=== PATIENT | female | born 1950 | race Hispanic/Latino ===

== ENCOUNTER 2016-12-18 10:49 | Outpatient (CLI) | payer MEDICARE ==
--- NOTE | 2016-12-18 13:11 | Mammography Report ---
Right mammogram: Patient with history of right breast biopsy demonstrating cancer. This evaluation is for location of clip. Standard imaging demonstrates a biopsy clip in the upper-outer right breast. There is no associated mass or calcifications after clip. Outside images demonstrated area of slight architectural distortion in the upper-outer breast which on the current study appears to lie 2 cm lateral and 1.4 cm above the clip. There are no outside post biopsy images available. The findings are not otherwise remarkable. Impression: It would appear that there is a discordance between location of biopsy clip and the targeted lesion. Dr. Reyes is aware of this.
== END 2016-12-18 10:50 | disposition home or self-care (01) ==
LOC: SPVWC 10:49
PROVIDERS: ATTEND Surgery
DX: R92.8 Other abnormal and inconclusive findings on diagnostic imaging of breast (principal)
CPT/HCPCS: G0206-RT

== ENCOUNTER 2016-12-26 06:16 | Day surgery (SDC) | payer MEDICARE ==
--- NOTE | 2016-12-26 07:28 | Anesthesia Consultation ---
Anesthesia Consult and Med Hx Date of service: 12/26/16 - Airway Anesthetic Teeth Evaluation: Good, Caps (multiple caps in the back) ROM Head & Neck: Adequate Mental/Hyoid Distance: Adequate Mallampati Class: Class III Intubation Access Assessment: Possibly Difficult - Pre-Operative Health Status ASA Pre-Surgery Classification: ASA2 Proposed Anesthetic Plan: General - Pulmonary Hx Sleep Apnea: No (Snoring) - Cardiovascular System Hx Hypertension: Yes - Central Nervous System Hx Back Pain: Yes Hx Psychiatric Problems: No - Gastrointestinal Hx Gastroesophageal Reflux Disease: Yes - Hematic Hx Anemia: No Hx Sickle Cell Disease: No - Other Systems Hx Cancer: Yes (right breast CA)
--- NOTE | 2016-12-26 07:29 | Anesthesia Day of Surgery ---
Anesthesia Day of Surgery - Day of Surgery Patient Examined: Yes Patient H&P Reviewed: Yes Patient is NPO: Yes Beta Blockers: Yes
[2016-12-26] MEDS ORDERED: VERSED IV NR (08:00)
[2016-12-26] MEDS ORDERED: LACTATED RINGERS 1,000 ML IV SCH (08:00)
[2016-12-26] MEDS ORDERED: XYLOCAINE 1% 20 mL ONE (08:13)
[2016-12-26] MEDS ORDERED: VANCOMYCIN/NS 1 GM/250 ML 1 GM/250 ML BAG IV NR (08:30)
[2016-12-26] MEDS ORDERED: DIPRIVAN 10 MG/ML IV ONE (09:25)
[2016-12-26] MEDS ORDERED: DILAUDID ONE ×2 (09:26→10:55)
[2016-12-26] MEDS ORDERED: MARCAINE-EPI/PF 0.5%-1:200,000 INFILTRATI ONE (09:28)
[2016-12-26] MEDS ORDERED: DECADRON ONE ×2 (09:28→10:46)
--- NOTE | 2016-12-26 09:56 | Mammography Report ---
Right breast needle localization procedure. History: Biopsy proven right breast cancer. Review of the patient's previous studies demonstrate that the biopsy clip is discordant in position by approximately 2 cm. After reviewing the images with Dr. Reyes, it was decided to place 2 wires in order to bracket the clip and the actual parenchymal density. Procedure: The patient's skin surface was prepped and draped using sterile technique. Local anesthetic was injected into the skin. Using mammographic guidance, 2 7.5 cm Varela needles were placed into the area of interest at the posterior margin of the biopsy clip and at the anterior margin of the parenchymal density/distortion. Adequate localization was accomplished and a coarse left in place. The patient tolerated the procedure well clinically and was sent to the OR in satisfactory condition.
[2016-12-26] MEDS ORDERED: WATER FOR IRRIG STERILE IR ONE (10:46)
[2016-12-26] MEDS ORDERED: XYLOCAINE MPF 2% ONE (10:46)
[2016-12-26] MEDS ORDERED: ePHEDrine SULFATE ONE (11:32)
[2016-12-26] MEDS ORDERED: ROBINUL ONE (11:44)
[2016-12-26] MEDS ORDERED: LACTATED RINGERS 1,000 ML ONE (12:12)
--- NOTE | 2016-12-26 12:33 | Mammography Report ---
Specimen radiograph. Findings: A single specimen radiograph confirms the presence of the biopsy clip and both hook wires within the specimen.
[2016-12-26] MEDS ORDERED: ZOFRAN ONE (12:41)
--- NOTE | 2016-12-26 13:02 | Short Stay Summary ---
Short Stay Documentation Date of service: 12/26/16 - History H&P: obtained from office - Allergies and Medications Current Medications: Allergies Penicillins Allergy (Verified 12/20/16 13:23) Rash happen during childhood Sulfa (Sulfonamide Antibiotics) Allergy (Verified 12/20/16 13:23) Rash adhesive tape Adverse Reaction (Verified 12/20/16 13:23) Bleeding redness and ripped skin Home Medications Medication Instructions Recorded Confirmed Last Taken Type Loratadine 10 mg PO DAILY 12/20/16 12/26/16 12/26/16 05:00 History Metoprolol Tartrate 37.5 mg PO BID 12/20/16 12/26/16 12/26/16 05:00 History Ranitidine HCl 150 mg PO BID 12/20/16 12/26/16 12/26/16 05:00 History HYDROcodone/APAP 5-325 [[place] 1 each PO Q6HR PRN #30 tablet 12/26/16 Unknown Rx 5/325] Active Medications Lactated Ringer's (Lactated Ringers) 1,000 mls @ 100 mls/hr IV DIRECT JENNIFER Last Admin: 12/26/16 09:25 Dose: 100 mls/hr Vancomycin HCl (Vancomycin/Ns 1 Gm/250 Ml) 1 gm in 250 mls @ 167.007 mls/hr IV PREOP NR PRN Reason: Protocol Stop: 12/26/16 15:00 Last Admin: 12/26/16 09:45 Dose: 167.007 mls/hr Midazolam HCl (Versed) 2 mg IV PREOP NR Stop: 12/26/16 23:59 Last Admin: 12/26/16 09:28 Dose: 2 mg - Brief post op/procedure progress note Date of procedure: 12/26/16 Pre-op diagnosis: Right breast cancer of the upper outer quadrant Post-op diagnosis: same Procedure: Complex right needle localization partial mastectomy with SLNB Anesthesia: GETA Findings: Wires and clip present within radiograph specimen Surgeon: DI DESOUZA Estimated blood loss: minimal Pathology: list (right partial mastectomy and SLNB) Specimen disposition: to lab Condition: stable - Disposition Condition at discharge: Good Disposition: DC-01 TO HOME OR SELFCARE Short Stay Discharge Plan Activity: other (no heavy lifting) Diet: regular Wound: other (keep incision clean and dry; may shower in 24 hours; no baths, pools or lakes; do not rub or scrub incision) Follow up with: VIKTORIYA RESENDIZ MD [Primary Care Provider] - 7 Days DI DESOUZA MD [Staff Physician] - 7 Days Prescriptions: HYDROcodone/APAP 5-325 [[place] 5/325] 1 each PO Q6HR PRN #30 tablet PRN Reason: Pain
--- NOTE | 2016-12-26 13:14 | Operative Report ---
Operative Report Operative Report: Date of Service: December 26, 2016 Preoperative diagnosis: Right breast cancer of the upper outer quadrant Postoperative diagnosis: Same Procedure: Complex right needle localization partial mastectomy and SLNB Surgeon: Madelin Reyes MD Anesthesia: General Findings: Radiograph specimen with wires and clip present; 1 SLN Drains: None EBL: less than 50 cc Complications: None Disposition: PACU in good condition Indications for operative procedure: This is a 66-year-old lady with newly diagnosed stage I right breast cancer of the upper outer quadrant. Recommendations were for radiology to place wires to localize area of cancer given discordance of clip from biopsy performed at outside facility. Area of cancer not well seen on ultrasound. Recommendations were to proceed with a partial mastectomy with sentinel lymph node staging. Patient wished to proceed with the above procedure. Procedure in detail: The patient was taken to the operating room and was laid supine. Anesthesia placed a right pectoral muscle block prior to going to the operating room. Radiology placed 2 wires to localize area of concern. Gen. anesthesia was administered. The right breast and axilla were prepped and draped in the normal sterile operative fashion. The nipple was injected with radioisotope. Wires identified. Gamma probe was inserted into the axillar for identification of sentinel lymph node. A skin incision was made with 15 blade knife in the axilla through the skin. The subcutaneous tissues were opened. Axillary fascia was opened with the Bovie cautery. The gamma probe was inserted into the axilla and one SLN was identified. Additional counts were less than 10% of the highest count. Hemostasis was obtained. Axillary cavity was irrigated and suctioned. Axillary fascia was approximated and closed using interrupted 3-0 Vicryl and skin closed and brought together using a 4-0 Monocryl and skin affix. Attention was then taken towards the right breast. 2 wires were identified. A right lateral breast incision was made with a 15 blade knife and dissection taken down to the subcutaneous tissues. The wires were removed from the skin. First began with raising of the superior flap taken down posteriorly to pectoralis muscle followed by raising of the inferior flap taking down posteriorly to the pectoralis muscle, followed by raising of the medial flap taken down posteriorly to the perctoralis muscle and then raising of the lateral flap in the same fashion. The wires were not encountered. The specimen was then removed from the pectoralis muscle with the Bovie cautery and marked. Radiograph breast specimen with wires and clip present. Specimen sent to pathology. Hemostasis was obtained with the aid of the Bovie cautery. Breast cavity was irrigated and suctioned. Posteior breast tissues were appropriately approximated and closed using interrupted 3-0 Vicryl and the skin brought together and closed using a running 4-0 Monocryl and skin affix. She tolerated surgery very well and was awakened from anesthesia without any complications and transferred to PACU in good condition.
[2016-12-26] MEDS ORDERED: TRANSDERM-SCOP TD PRN (13:56)
[2016-12-26 17:48] VITALS: BP 125/70
--- NOTE | 2016-12-26 18:39 | Post Anesthesia Evaluation ---
- Post Anesthesia Evaluation Patient Participated: Yes Airway Patent: Yes Stable Respiratory Function: Yes Nausea/Vomiting: No Temp > 96.8F: Yes Pain Manageable: Yes Adequeate Hydration: Yes Anesthesia Complications: No Block Receding Appropriately: Not Applicable Patient on Ventilator: No
== END 2016-12-26 17:05 | disposition home or self-care (01) ==
LOC: OR 06:16
PROVIDERS: ATTEND Surgery
DX: C50.411 Malignant neoplasm of upper-outer quadrant of right female breast (principal); I10 Essential (primary) hypertension; K21.9 Gastro-esophageal reflux disease without esophagitis; Z88.0 Allergy status to penicillin; Z88.2 Allergy status to sulfonamides; Z91.09 Other allergy status, other than to drugs and biological substances; Z98.890 Other specified postprocedural states; Z79.899 Other long term (current) drug therapy; Z80.3 Family history of malignant neoplasm of breast; Z80.41 Family history of malignant neoplasm of ovary
CPT/HCPCS: 19281; 19282; 19301; 38525; 38792; 64450; 76098; 78800; 88307; 88333; 88342; A9541; J1100; J1170; J2250; J2405; J2704; J3370; J7120

== ENCOUNTER 2017-05-28 09:47 | Outpatient (CLI) | payer MEDICARE ==
--- NOTE | 2017-05-28 10:17 | Mammography Report ---
RIGHT DIGITAL DIAGNOSTIC MAMMOGRAM with CAD: 05/28/17 09:47:00 CLINICAL: Six month followup after partial mastectomy and radiation therapy. She completed radiation in March 2017. COMPARISON:12/18/16 FINDINGS: Postsurgical scar after excision of an upper-outer lesion with a biopsy clip.Mild skin thickening at the scar. No mass, suspicious architectural distortion or suspicious calcifications. IMPRESSION: No mammographic evidence of malignancy.Benign postsurgical and post radiation changes. BI-RADS CATEGORY: 2 - - Benign RECOMMENDATION: Routine mammographic screening. ACR BI-RADS MAMMOGRAPHIC CODES: 0 = Needs additional imaging evaluation; 1 = Negative; 2 = Benign; 3 = Probably benign; 4 = Suspicious; 5 = Malignant; 6 = Known biopsy-proven malignancy COMMENT: 1. Dense breast tissue, i.e., adenosis, fibrocystic changes, etc., may obscure an underlying neoplasm. 2. Approximately 10% of cancers are not detected with mammography. 3. A negative mammography report should not delay biopsy if a clinically suspicious mass is present. COMMENT: Patient follow-up letters are generated by our [employer] application.
== END 2017-05-28 09:48 | disposition home or self-care (01) ==
LOC: SPVWC 09:47
PROVIDERS: ATTEND Surgery
DX: R92.8 Other abnormal and inconclusive findings on diagnostic imaging of breast (principal); Z85.3 Personal history of malignant neoplasm of breast; Z90.11 Acquired absence of right breast and nipple

== ENCOUNTER → 2017-11-05 | Outpatient (CLI) | payer MEDICARE ==
--- NOTE | 2017-11-05 14:50 | Mammography Report ---
BILATERAL DIGITAL DIAGNOSTIC MAMMOGRAM WITH CAD : 11/05/17 14:11:00 CLINICAL: Breast cancer survivor status post right partial mastectomy in 2017 with subsequent radiation therapy. COMPARISON:05/28/17 FINDINGS: The left breast is mostly fatty and the right breast is smaller and heterogeneously dense. Benign right upper outer postsurgical scar. Moderate skin thickening of the right breast with an increase since the last mammogram. No mass, suspicious architectural distortion or suspicious calcifications. IMPRESSION: No mammographic evidence of malignancy. Benign postsurgical and post radiation changes in the right breast. BI-RADS CATEGORY: 2 -- Benign RECOMMENDATION: Routine mammographic screening in one year. COMMENT: Patient follow-up letters are generated via our [employer] application.
== END | disposition home or self-care (01) ==
LOC: SPVWC 14:11
PROVIDERS: ATTEND Surgery
DX: R92.8 Other abnormal and inconclusive findings on diagnostic imaging of breast (principal); I10 Essential (primary) hypertension; K21.9 Gastro-esophageal reflux disease without esophagitis; M19.90 Unspecified osteoarthritis, unspecified site; Z90.710 Acquired absence of both cervix and uterus; Z88.0 Allergy status to penicillin; Z88.2 Allergy status to sulfonamides; Z91.048 Other nonmedicinal substance allergy status
CPT/HCPCS: 77066

== ENCOUNTER 2017-12-10 12:21 | Outpatient (CLI) | payer MEDICARE ==
--- NOTE | 2017-12-10 14:53 | Ultrasound Report ---
RIGHT BREAST ULTRASOUND: 12/10/17 12:21:00 CLINICAL: History of stage I right breast cancer status post right partial mastectomy 12/26/16 with subsequent radiation therapy. Increased skin thickening over the last month. COMPARISON: 11/05/17 [facility] mammogram 11/20/17 breast MRI from [facility]. The MRI report describes 2 subcentimeter foci of non-Mass enhancement deep to the surgical scar. MRI guided needle localization with surgical excision was recommended. FINDINGS: Ultrasound of the right breast(including all four quadrants and the retroareolar area) was performed. A seroma deep to the surgical scar at 10 o'clock 6 cm from the nipple measures approximately 2.8 x 2.1 x 3.0 cm. The wall of the seroma is asymmetrically thickened and measures 8 mm maximum. No mass or suspicious shadowing. It should also be noted that there are no signs of fat necrosis on the recent mammogram other than a fat fluid level at the center of the surgical site. IMPRESSION: Asymmetric thickening of the postsurgical seroma at 10 o'clock 6 cm from the nipple is of uncertain significance and may or may not correlate with the MRI finding. Consider ultrasound-guided aspiration of the seroma and ultrasound guided vacuum assisted needle biopsy of the thickened seroma wall if the recommended MRI guided localization and surgical excision are not performed. BI-RADS 4--Suspicious
== END 2017-12-10 12:22 | disposition home or self-care (01) ==
LOC: SPVWC 12:21
PROVIDERS: ATTEND Surgery
DX: C50.411 Malignant neoplasm of upper-outer quadrant of right female breast (principal); I10 Essential (primary) hypertension; K21.9 Gastro-esophageal reflux disease without esophagitis; Z90.710 Acquired absence of both cervix and uterus; M19.90 Unspecified osteoarthritis, unspecified site

== ENCOUNTER 2018-09-09 08:54 | Outpatient (CLI) | payer MEDICARE ==
--- NOTE | 2018-09-09 09:53 | Mammography Report ---
BILATERAL DIGITAL DIAGNOSTIC MAMMOGRAM WITH CAD : 09/09/18 08:54:00 CLINICAL: Breast cancer survivor status post right partial mastectomy. She also had an MRI guided vacuum assisted needle biopsy at [facility] 12/18/17 with pathology of benign fat necrosis and foreign body type giant cell reaction. COMPARISON:03/04/18 and 11/05/17 FINDINGS: The breasts are heterogeneously dense, which may obscure small masses. Right upper outer benign postsurgical scar. A previously confirmed fluid collection at the scar has resolved. No mass, suspicious architectural distortion or suspicious calcifications. The left breast is negative. IMPRESSION: No mammographic evidence of malignancy. Benign right posttreatment changes. BI-RADS CATEGORY: 2 -- Benign RECOMMENDATION: Routine mammographic screening in one year. COMMENT: Patient follow-up letters are generated via our [employer] application.
== END 2018-09-09 08:55 | disposition home or self-care (01) ==
LOC: SPVWC 08:54
PROVIDERS: ATTEND Surgery
DX: C50.911 Malignant neoplasm of unspecified site of right female breast (principal); I10 Essential (primary) hypertension; K21.9 Gastro-esophageal reflux disease without esophagitis; Z90.710 Acquired absence of both cervix and uterus
CPT/HCPCS: 77066

== ENCOUNTER 2019-03-10 13:03 | Outpatient (CLI) | payer MEDICARE ==
--- NOTE | 2019-03-10 13:53 | Mammography Report ---
DIGITAL SCREENING MAMMOGRAM WITH CAD, 03/10/2019 INDICATION: Routine screening mammography. Breast cancer survivor status post right partial mastectom y in 2017 with subsequent radiation therapy. She also had an MRI guided needle biopsy of the right br east at [facility] 12/18/2017 with pathology of benign fat necrosis and foreign body type giant treva l reaction. TECHNIQUE: Digital bilateral 2D mammography was obtained in the craniocaudal and mediolateral obliq ue projections. This examination was interpreted with the benefit of Computer-Aided Detection analysi s. COMPARISON: 09/09/2018 FINDINGS: Breast Density: The breasts are heterogeneously dense, which may obscure small masses. There is no evidence of dominant mass, suspicious calcifications or suspicious architectural distorti on in either breast. Stable right upper outer benign postsurgical scar. Moderate skin thickening of t he right breast. IMPRESSION: No mammographic evidence of malignancy. Follow up recommendation: Routine yearly BI-RADS Category 2: Benign. A "normal" or negative report should not discourage follow up or biopsy of a clinically significant f inding. A written summary of these findings will be mailed to the patient. The patient will be entered into a mammography reporting system which will generate a reminder letter for the patient's next appointmen t at the appropriate interval. The [employer] recommends yearly mammograms starting at age 40 and continuing as l abigail as a woman is in good health. Breast MRI is recommended for women with an approximate 20-25% or greater lifetime risk of breast cancer, including women with a strong family history of breast or ova margarita cancer or who have been treated for Hodgkin's disease. Signer Name: Marcelo Magana MD Signed: 03/10/2019 1:49 PM Workstation Name: [id number]
== END 2019-03-10 13:04 | disposition home or self-care (01) ==
LOC: SPVWC 13:03
PROVIDERS: ATTEND Surgery
DX: Z12.31 Encounter for screening mammogram for malignant neoplasm of breast (principal)
CPT/HCPCS: 77067

== ENCOUNTER 2019-03-12 10:08 | Outpatient (CLI) | payer MEDICARE ==
--- NOTE | 2019-03-12 14:36 | Nuclear Medicine Report ---
NUCLEAR MEDICINE BONE SCAN, WHOLE BODY INDICATION: Breast cancer, bone pain. TECHNIQUE: 26.9 mCi of Tc-99m MDP were injected IV. Whole body images were obtained. COMPARISON: No relevant prior imaging study available. FINDINGS: Skeletal Structures: There is some focal activity noted in the left aspect of the lower cervical spin e. There is focal uptake noted in the left greater trochanter.. Mild, relatively symmetric, periartic ular activity which is likely degenerative. There is mild uptake in the shoulders knees and proximal feet likely degenerative in nature. Skeletal Lesions: None. Soft Tissues: Normal. Kidneys: Normal, symmetric activity. Additional Findings: None. IMPRESSION: 1. The uptake in the shoulders knees and feet is characteristic of degenerative change. The uptake in the left lower cervical spine is indeterminate but most likely degenerative as well. The uptake in t he greater trochanter of the left femur is not specific. If clinically warranted further evaluation w ith MRI of the cervical spine and left hip can be obtained to further evaluate.. Signer Name: Lakhwinder Alves MD Signed: 03/12/2019 2:32 PM Workstation Name: [id number]
== END 2019-03-12 10:09 | disposition home or self-care (01) ==
LOC: NM 10:08
PROVIDERS: ATTEND Internal Medicine Hematology & Oncology
DX: C50.411 Malignant neoplasm of upper-outer quadrant of right female breast (principal)
CPT/HCPCS: 78306; A9503

== ENCOUNTER 2019-05-04 13:11 | Outpatient (CLI) | payer MEDICARE ==
--- NOTE | 2019-05-04 16:40 | Magnetic Resonance Report ---
MRI CERVICAL SPINE 05/04/2019 INDICATION / CLINICAL INFORMATION: INCONCLUSIVE BONE SCAN/ BONE PAIN. History of breast cancer COMPARISON: Bone scan 03/12/2019 FINDINGS: GENERAL OBSERVATIONS: Unenhanced and enhanced MR images of the cervical spine were obtained. There is no evidence of acute abnormality. Vertebral body alignment and height is well preserved. There is no evidence of metastatic disease. Facet degenerative changes are present in the lower cervical spine, more pronounced on the left than on the right. This area of degenerative change corresponds to changes seen on the recent bone scan. There is no evidence of spinal cord compression or intrinsic spinal cord abnormality. [id number] ANALYSIS: C7-T1: Unremarkable. C6-7: Disc profile is preserved. Left-sided facet degenerative changes are present.. C5-6: Mild diffuse disc bulging and left greater than right facet degenerative changes. C4-5: Disc profile is well preserved. Bilateral facet degenerative changes are present. C3-4: Minimal symmetric diffuse disc bulging and small central disc protrusion. C2-3: Unremarkable. CRANIO-CERVICAL JUNCTION: Unremarkable. BONE MARROW: No significant abnormality. PARASPINAL SOFT TISSUES: No significant abnormality. IMPRESSION: 1. Facet degenerative changes, more pronounced on the left. 2. No evidence of metastatic disease. 3. No evidence of stenosis. Signer Name: Carlos Cali MD Signed: 05/04/2019 4:36 PM Workstation Name: [email or web address]
--- NOTE | 2019-05-04 18:08 | Magnetic Resonance Report ---
MRI LEFT HIP WITHOUT AND WITH CONTRAST INDICATION / CLINICAL INFORMATION: INCONCLUSIVE BONE SCAN/ BONE PAIN. Breast cancer. TECHNIQUE: Multiplanar, multisequence MR images were obtained. Pre and postcontrast sequences were obtained. 16 mL MultiHance injected IV. COMPARISON: Bone scan dated 03/12/19 FINDINGS: ACETABULAR LABRUM: Degenerative fraying but no tear. ARTICULAR CARTILAGE: Mild left hip chondrosis and degenerative arthrosis. JOINT SPACE AND CAPSULE: No significant joint effusion. GLUTEAL MUSCLES/TENDONS: Left gluteus medius and minimus tendinopathy with mild to moderate peritendi nitis. This peritendinitis may account for the mild uptake of radiotracer in the left greater trochan ter noted on bone scan. No underlying osseous lesion in the left greater trochanter. ILIOPSOAS MUSCLES/TENDON: No significant abnormality. PROXIMAL HAMSTRING TENDONS: No significant abnormality. GROIN MUSCLES/TENDONS: No significant abnormality. SOFT TISSUES: No significant abnormality. BONES: No significant bone marrow edema. No fracture. No osseous lesion. SACROILIAC JOINT(S): No significant abnormality. LOWER LUMBAR SPINE: No significant abnormality of visualized lower lumbar spine. SOFT TISSUE WITHIN PELVIS: No acute findings. ADDITIONAL FINDINGS: None. IMPRESSION: 1. Left gluteus medius and minimus tendinopathy and peritendinitis which likely accounts for the mild activity in the left greater trochanter on recent bone scan. 2. No focal osseous lesion in left greater trochanter or elsewhere in the visualized bony pelvis/left hip. Signer Name: Marleny Yeung MD Signed: 05/04/2019 6:03 PM Workstation Name: [id number]
== END 2019-05-04 13:12 | disposition home or self-care (01) ==
LOC: SPVIMAG 13:11
PROVIDERS: ATTEND Internal Medicine Hematology & Oncology
DX: M47.812 Spondylosis without myelopathy or radiculopathy, cervical region (principal); M16.12 Unilateral primary osteoarthritis, left hip; M76.02 Gluteal tendinitis, left hip; M50.21 Other cervical disc displacement, high cervical region; C50.411 Malignant neoplasm of upper-outer quadrant of right female breast
CPT/HCPCS: 72142; 73722; A9577

== ENCOUNTER 2019-10-01 08:40 | Outpatient (CLI) | payer MEDICARE ==
--- NOTE | 2019-10-01 11:39 | Mammography Report ---
RIGHT DIGITAL DIAGNOSTIC MAMMOGRAM WITH CAD -- 10/01/2019 RIGHT LIMITED BREAST ULTRASOUND INDICATION: Patient has history of right breast cancer status post lumpectomy in 2018. Patient presen ts for evaluation of focal pain and thickening along the lateral right breast. TECHNIQUE: Digital right mammographic imaging was performed. Limited ultrasound was performed. This examination was interpreted with the benefit of Computer-Aided Detection (CAD) analysis. COMPARISON: Prior mammograms 03/10/2019, 09/09/2018, and 11/05/2017, and right breast ultrasound 2017 FINDINGS: Breast Density: The breasts are heterogeneously dense, which may obscure small masses. MAMMOGRAPHIC FINDINGS: There is no evidence of dominant mass or suspicious calcifications in the righ t breast. There is stable postlumpectomy change and a stable biopsy clip seen in the upper outer quad rant of the right breast. There is a stable dystrophic calcification in the right axilla measuring up to 1.4 cm. There has been no significant change compared with the prior examinations. ULTRASOUND FINDINGS: Targeted ultrasound evaluation was performed of the area of interest. Targeted ultrasound of the area of focal pain and thickening in the 9:00 right breast reveals normal fibrogla ndular tissue. Redemonstration of the lumpectomy site in the right breast 10:00 position located 4 cm from the nipple, currently measuring up to 2.6 x 2.5 x 1.7 cm, previously 3.4 x 2.9 x 2.8 cm on prio r ultrasound from 02/2018. Ultrasound of the right axilla reveals a shadowing focus measuring up to 1 .2 cm, corresponding with the stable dystrophic calcification seen mammographically. IMPRESSION: 1. Stable postlumpectomy change in the right breast. No suspicious mammographic or sonographic abnorm ality to account for right focal pain and thickening, therefore clinical correlation is recommended. Follow up recommendation: Back to schedule. BI-RADS Category 2: Benign. A "normal" or negative report should not discourage follow up or biopsy of a clinically significant f inding. A written summary of these findings will be mailed to the patient. The patient will be entered into a mammography reporting system which will generate a reminder letter for the patient's next appointmen t at the appropriate interval. According to the [employer], yearly mammograms are recommended starting at age 40 and continuing as long as a woman is in good health. Breast MRI is recommended for women with an jd roximately 20-25% or greater lifetime risk of breast cancer, including women with a strong family his tory of breast or ovarian cancer and women who have been treated for Hodgkin's disease. Signer Name: Yamel Conner MD Signed: 10/01/2019 11:35 AM Workstation Name: [email or web address]
== END 2019-10-01 08:41 | disposition home or self-care (01) ==
LOC: SPVWC 08:40
PROVIDERS: ATTEND Surgery
DX: C50.411 Malignant neoplasm of upper-outer quadrant of right female breast (principal); Z98.890 Other specified postprocedural states

== ENCOUNTER 2020-03-15 11:13 | Outpatient (CLI) | payer MEDICARE ==
--- NOTE | 2020-03-16 13:16 | Mammography Report ---
DIGITAL SCREENING MAMMOGRAM WITH CAD, 03/15/2020 CLINICAL INFORMATION / INDICATION: Routine screening mammography. TECHNIQUE: Digital bilateral 2D mammography was obtained in the craniocaudal and mediolateral obliqu e projections. This examination was interpreted with the benefit of Computer-Aided Detection analysis . COMPARISON: 03/10/2019 FINDINGS: Breast Density: The breasts are heterogeneously dense, which may obscure small masses. No dominant mass, suspicious calcifications, or architectural distortion in either breast. Right surgical and biopsy changes are stable. IMPRESSION: No mammographic evidence of malignancy. Follow up recommendation: Routine yearly BI-RADS Category 2: Benign. A "normal" or negative report should not discourage follow up or biopsy of a clinically significant f inding. A written summary of these findings will be mailed to the patient. The patient will be entered into a mammography reporting system which will generate a reminder letter for the patient's next appointmen t at the appropriate interval. The [employer] recommends yearly mammograms starting at age 40 and continuing as l abigail as a woman is in good health. Breast MRI is recommended for women with an approximate 20-25% or greater lifetime risk of breast cancer, including women with a strong family history of breast or ova margarita cancer or who have been treated for Hodgkin's disease. Signer Name: Devon Walters MD Signed: 03/16/2020 1:12 PM Workstation Name: [id number]
== END 2020-03-15 11:14 | disposition home or self-care (01) ==
LOC: SPVWC 11:13
PROVIDERS: ATTEND Surgery
DX: Z12.31 Encounter for screening mammogram for malignant neoplasm of breast (principal)
CPT/HCPCS: 77067

== ENCOUNTER 2020-10-11 09:37 | Outpatient (CLI) | payer MEDICARE ==
--- NOTE | 2020-10-11 10:27 | Mammography Report ---
RIGHT DIAGNOSTIC MAMMOGRAM INDICATION: History of right breast lumpectomy. No current complaints. COMPARISON: 03/15/2020 09/30/2018, 03/10/2019. FINDINGS: The right breast demonstrates scattered fibroglandular breast density. Stable postsurgical change within the right upper outer breast with biopsy marker noted slightly more posteriorly. No new suspicious mass, microcalcifications, or other abnormality. CAD was utilized. IMPRESSION: Stable mammographic appearance without evidence of malignancy. The patient will be due for annual guille ateral screening mammogram in February 2021. BI-RADS Category 2: Benign. Recommend routine screening mammography in one year A "normal" or negative report should not discourage follow up or biopsy of a clinically significant f inding. A written summary of these findings will be mailed to the patient. FURTHER INFORMATION: According to the [employer], yearly mammograms are recommend ed starting at age 40 and continuing as long as a woman is in good health. Breast MRI is recommended for women with an approximately 20-25% or greater lifetime risk of breast cancer, including women wi th a strong family history of breast or ovarian cancer and women who have been treated for Hodgkin's disease. Signer Name: Breezy Jean MD Signed: 10/11/2020 10:22 AM Workstation Name: [id number]
== END 2020-10-11 09:38 | disposition home or self-care (01) ==
LOC: SPVWC 09:37
PROVIDERS: ATTEND Surgery
DX: R92.8 Other abnormal and inconclusive findings on diagnostic imaging of breast (principal); Z85.3 Personal history of malignant neoplasm of breast

== ENCOUNTER 2021-04-11 15:57 | Outpatient (CLI) | payer MEDICARE ==
--- NOTE | 2021-04-12 10:18 | Mammography Report ---
DIGITAL SCREENING MAMMOGRAM WITH CAD, 04/11/2021 CLINICAL INFORMATION / INDICATION: Routine screening mammography. SCREENING MAMMO TECHNIQUE: Digital bilateral 2D mammography was obtained in the craniocaudal and mediolateral obliqu e projections. This examination was interpreted with the benefit of Computer-Aided Detection analysis . COMPARISON: 03/15/2020 and 10/01/2019 FINDINGS: Breast Density: There are scattered areas of fibroglandular density. No dominant mass, suspicious calcifications, or architectural distortion in either breast. Biopsy change in the right breast again noted. IMPRESSION: No mammographic evidence of malignancy. Follow up recommendation: Routine yearly BI-RADS Category 2: BENIGN. A "normal" or negative report should not discourage follow up or biopsy of a clinically significant f inding. A written summary of these findings will be mailed to the patient. The patient will be entered into a mammography reporting system which will generate a reminder letter for the patient's next appointmen t at the appropriate interval. The [employer] recommends yearly mammograms starting at age 40 and continuing as l abigail as a woman is in good health. Breast MRI is recommended for women with an approximate 20-25% or greater lifetime risk of breast cancer, including women with a strong family history of breast or ova margarita cancer or who have been treated for Hodgkin's disease. Signer Name: Carlo Head MD Signed: 04/12/2021 10:14 AM Workstation Name: [id number]
== END 2021-04-11 15:58 | disposition home or self-care (01) ==
LOC: SPVWC 15:57
PROVIDERS: ATTEND Surgery
DX: Z12.31 Encounter for screening mammogram for malignant neoplasm of breast (principal); N64.89 Other specified disorders of breast
CPT/HCPCS: 77067